=== PATIENT | female | born 1970 | race Caucasian/White ===

== ENCOUNTER → 2019-11-06 08:51 | Outpatient (BNVA) | payer BC, SELFPAY | PROVIDERS: Family Provider Nurse Practitioner; PCP Nurse Practitioner; Visit Provider Nurse Practitioner | DX: E88.81 Metabolic syndrome and other insulin resistance (principal); I10 Essential (primary) hypertension | CPT/HCPCS: 80048 ==

== ENCOUNTER → 2020-02-01 10:21 | Outpatient (BNVA) | payer BC, SELFPAY | PROVIDERS: Family Provider Nurse Practitioner; PCP Nurse Practitioner; Visit Provider Nurse Practitioner | DX: I10 Essential (primary) hypertension (principal); E88.81 Metabolic syndrome and other insulin resistance; R91.1 Solitary pulmonary nodule; R73.9 Hyperglycemia, unspecified | CPT/HCPCS: 80053; 80061; 83036; 84443 ==

== ENCOUNTER 2020-02-28 13:55 | Outpatient (CLI) | payer BC, SELFPAY ==
--- NOTE | 2020-02-28 14:15 | US_ITS ---
WS: [id number] THYROID ULTRASOUND HISTORY: fullness with swallowing COMPARISON: None available. Right lobe: 4.8 cm x 1.7 cm x 2.0 cm. Volume: 8.4 cm3. Normal size gland with heterogeneous echotexture. Hypoechoic areas within the central gland are very poorly visualized as discrete nodules. No increased vascularity. There are a few scattered calcificat ions. Largest nodule in the mid gland measures 1.4 x 0.8 x 1.0 cm. Left lobe: 5.0 cm x 1.5 cm x 1.4 cm. Volume: 5.3 cm3. Normal size gland with diffuse heterogeneity. There are multiple nodules. The largest nodule in the i nferior gland measures 1.5 x 0.8 x 2.1 cm. Isthmus: 0.5 cm. There are several small nodules along the isthmus. US/US thyroid [id number] IMPRESSION: 1. Multiple bilateral thyroid nodules. By ultrasound cannot classify these as benign. Recommend fine-needle aspiration by ultrasound. Fine-needle aspiration can be directed to the most concerning nodules bilaterally. Alternatively follo w-up with ENT recommended. 2. Diffuse heterogeneity throughout the gland.
== END 2020-02-28 13:56 | disposition home or self-care (01) ==
LOC: RAD 13:59
PROVIDERS: Family Provider Nurse Practitioner; PCP Nurse Practitioner; Visit Provider Nurse Practitioner
DX: F45.8 Other somatoform disorders (principal); E04.2 Nontoxic multinodular goiter
CPT/HCPCS: 76536

== ENCOUNTER 2020-04-21 13:01 | Outpatient (CLI) | payer BC, SELFPAY ==
--- NOTE | 2020-04-21 13:00 | CT_ITS ---
WS: [id number] CT CHEST TECHNIQUE: Noncontrast CT of the chest with coronal and sagittal reformatted images. CLINICAL INFORMATION: lung nodule and Mild ectasia of the ascending thoracic aorta COMPARISON: CT 8 5018 DLP: 950.[address] scans at [facility] use at least one of these dose optimization techniques: automat ed exposure control; mA and/or kV adjustment per patient size (includes targeted exams where dose is matched to clinical indication); or iterative reconstruction. FINDINGS: Again seen is mild ectasia of the ascending thoracic aorta measuring 3.5 CM. This is unchanged since the prior examination. Small esophageal hiatal hernia. Stable noncalcified 4 mm pulmonary nodule righ t lower lobe. This is unchanged since . No other suspicious pulmonary parenchymal abnormalitie s. No acute pulmonary infiltrates. No mediastinal or hilar lymphadenopathy. Adrenal glands are normal. No axillary lymphadenopathy. Hypertrophic changes thoracic spine. Fleischner Society guidelines for follow-up and management of incidental pulmonary nodule (Radiology 2005; 237:395-400): Nodule <= 4 mm: LOW-RISK patient (minimal or absent history of smoking and other known risk factors): No follow-up needed. HIGH-RISK patient (history of smoking or other known risk factors): Follow-up CT at 12 months; if unc hanged, no further follow-up. Nodule 5 - 6 mm: LOW-RISK patient (minimal or absent history of smoking and other known risk factors) : Follow-up CT at 12 months; if unchanged, no further follow-up. HIGH-RISK patient (history of smoking or other known risk factors): Initial follow-up CT at 6-12 murphy hs, then at 18-[address] CT/CT chest wo con [id number] IMPRESSION: 1. Stable 4 mm noncalcified nodule right lower lobe. 2. Mild chronic emphysematous changes. 3. No acute pulmonary infiltrates. 4. Stable slight ectasia of the ascending thoracic aorta measuring 3.5 cm. Thi s is unchanged. Normal caliber descending thoracic aorta. 5. No mediastinal or hilar lymphadenopathy. Fleischner Society Guidelines Chest CT
== END 2020-04-21 13:02 | disposition home or self-care (01) ==
LOC: RADWPI 13:07
PROVIDERS: Family Provider Nurse Practitioner; PCP Nurse Practitioner; Visit Provider Nurse Practitioner
DX: R91.1 Solitary pulmonary nodule (principal); I77.810 Thoracic aortic ectasia; J43.9 Emphysema, unspecified
CPT/HCPCS: 71250

== ENCOUNTER → 2020-04-24 09:07 | Outpatient (BNVA) | payer BC, SELFPAY | PROVIDERS: Family Provider Nurse Practitioner; PCP Nurse Practitioner; Visit Provider Nurse Practitioner | DX: I10 Essential (primary) hypertension (principal); E11.65 Type 2 diabetes mellitus with hyperglycemia; E88.81 Metabolic syndrome and other insulin resistance | CPT/HCPCS: 80053; 83036 ==

== ENCOUNTER → 2020-07-30 09:16 | Outpatient (BNVA) | payer BC, SELFPAY | PROVIDERS: Family Provider Nurse Practitioner; PCP Nurse Practitioner; Visit Provider Nurse Practitioner | DX: E11.65 Type 2 diabetes mellitus with hyperglycemia (principal); I10 Essential (primary) hypertension | CPT/HCPCS: 80053 ==

== ENCOUNTER → 2020-11-11 16:48 | Outpatient (BNVA) | payer BC, SELFPAY | PROVIDERS: Family Provider Nurse Practitioner; PCP Nurse Practitioner; Visit Provider Nurse Practitioner | DX: I10 Essential (primary) hypertension (principal); E11.65 Type 2 diabetes mellitus with hyperglycemia; R00.2 Palpitations; F41.9 Anxiety disorder, unspecified; M79.10 Myalgia, unspecified site | CPT/HCPCS: 80053; 80061; 82043; 83036 ==

== ENCOUNTER 2021-02-23 06:00 | Outpatient (CLI) | payer BC, SELFPAY | END 2021-02-23 06:01 | disposition home or self-care (01) | LOC: LAB 02-02 08:23 | PROVIDERS: PCP Nurse Practitioner; Visit Provider Nurse Practitioner | DX: E11.65 Type 2 diabetes mellitus with hyperglycemia (principal) | CPT/HCPCS: 80053; 83036 ==

== ENCOUNTER 2021-03-30 09:38 | Outpatient (CLI) | payer BC, SELFPAY ==
--- NOTE | 2021-03-30 09:30 | MM_ITS ---
WS: [id number] Gricelda Zavala BILATERAL SCREENING DIGITAL MAMMOGRAM WITH CAD HISTORY: Screening. COMPARISON: None available. Bilateral CC and MLO views submitted. Computer aided detection analyzed. Breast composition: There are scattered areas of fibroglandular density. No suspicious masses, microc alcifications or architectural distortion. Benign scattered calcifications in each breast. MM/[place] [id number] IMPRESSION: BI-RADS: 2-Benign FOLLOW UP: 1 Year Follow-up
--- NOTE | 2021-03-30 10:30 | CT_ITS ---
WS: [id number] Gricelda Salaz[address] CT CHEST WITHOUT INTRAVENOUS CONTRAST HISTORY: Follow-up pulmonary nodule. TECHNIQUE: Contiguous 5 mm axial imaging performed on the thorax. Coronal and sagittal reformats are submitted. All CT scans at [facility] use at least one of these dose optimization techniq ues: automated exposure control; mA and/or kV adjustment per patient size (includes targeted exams wh ere dose is matched to clinical indication); or iterative reconstruction. CONTRAST: None DLP: 1072.11 mGy-cm. COMPARISON: 04/21/2020 and 04/23/2019 Lungs and central airway: Mild pulmonary hyperinflation. Stable 4 mm nodule in the periphery of the R IGHT lower lobe. Nodule has been stable since 04/23/2019. No new nodules. No pneumonia. Pleura: Normal. No pleural effusion. Heart and pericardium: Normal size heart with no pericardial effusion. Mediastinum and tyshawn: No mediastinum or hilar adenopathy. Vessels: Mildly enlarged pulmonary artery, 3.1 cm. There is mild atherosclerosis within the thoracic aorta but no aneurysm. Chest wall and lower neck: No soft tissue masses. Upper abdomen: Mild hepatic steatosis. No adrenal mass. Osseous structures: Mild thoracic spondylosis. No destructive bone lesions. CT/CT chest wo con [id number] IMPRESSION: 1. Long-term stability 4 mm nodule in the RIGHT lower lobe. No additional imag ing follow-up necessary at this time. 2. Mild pulmonary hypertension. 3. No adenopathy. 4. Chronic emphysema.
== END 2021-03-30 09:39 | disposition home or self-care (01) ==
LOC: RADSHAW 09:41
PROVIDERS: Family Provider Nurse Practitioner; PCP Nurse Practitioner; Visit Provider Nurse Practitioner
DX: Z12.31 Encounter for screening mammogram for malignant neoplasm of breast (principal); R91.1 Solitary pulmonary nodule; I27.20 Pulmonary hypertension, unspecified; J43.9 Emphysema, unspecified
CPT/HCPCS: 71250; 77067

== ENCOUNTER → 2021-05-28 16:11 | Outpatient (BNVA) | payer BC, SELFPAY | PROVIDERS: Family Provider Nurse Practitioner; PCP Nurse Practitioner; Visit Provider Nurse Practitioner | DX: E11.65 Type 2 diabetes mellitus with hyperglycemia (principal); I10 Essential (primary) hypertension; F41.9 Anxiety disorder, unspecified; M79.10 Myalgia, unspecified site; R00.2 Palpitations | CPT/HCPCS: 80053; 83036 ==

== ENCOUNTER → 2021-09-08 11:08 | Outpatient (BNVA) | payer BC, SELFPAY | PROVIDERS: Family Provider Nurse Practitioner; PCP Nurse Practitioner; Visit Provider Nurse Practitioner | DX: E11.65 Type 2 diabetes mellitus with hyperglycemia (principal) | CPT/HCPCS: 80053; 83036 ==

== ENCOUNTER 2021-11-16 23:30 | Emergency (ER) | payer OTHER, SELFPAY ==
--- NOTE | 2021-11-16 23:37 | ED_ITS ---
HPI - Ear Problem General: Chief complaint: General Medical Stated complaint: Bug in Rt ear Time Seen by Provider: 11/16/21 23:37 History of Present Illness: 51-year-old female reports that she was lying in bed reading when she felt something go into her ear. Patient has tried irrigat ing out at home but continues to feel it in her ear. Patient appears in no acute distress. Patient denies any other concerns. Associated symptoms: Reports ear or mastoid pain (Foreign body right ear) Review of Systems General: Reports: 10 or more systems reviewed and unremarkable except in HPI and below ENMT: Reports: ear or mastoid pain (Foreign body right ear) PFSH ED PFSH: Medical History Aortic root dilatation 3.5cm BMI 40.0-44.9, adult Controlled diabetes mellitus with hyperglycemia Essential hypertension History of mammography, screening Hx of solitary pulmonary nodule Surgical History Hx of eye surgery right eye age 7 Family History Father Hypertension Mother Diabetes Social History Second hand smoke exposure: No Smoking risk assessment/counseling performed?: No Alcohol intake: current Alcohol intake frequency: holidays/special occasions only Desire information about alcohol rehabilitation?: No Counseling given: No Desire information about substance/drug rehabilitation?: No Counseling given: No Adopted: No Caregiver/support person: No Lives independently: Yes Household members: spouse Housing: House Marital status: Number of children: 1 service: No Current occupational status: employed Current occupation: [employer] Pets and animals: Yes History of recent travel: No Current gender identity: Female Female Reproductive History: Date of last menstrual period: 08/27/21 Physical Exam Const: COMMON NORMALS: alert HENMT: EXTERNAL AUDITORY CANAL: Abnormal EAC present EAC laterality: right Details: excessive cerumen and foreign body (Distal ear canal 6 o'clock position) Lymph: LYMPHATIC: no lymphadenopathy noted Resp: COMMON NORMALS: normal respiratory effort Cardio: COMMON NORMALS: regular rate and regular rhythm RATE: regular rate RHYTHM: regular rhythm Extremity: COMMON NORMALS: normal to inspection Neuro: SENSORIUM/ORIENTATION: Yes alert Psych: COMMON NORMALS: cooperative Procedures FB Removal Ear Location: ear canal (R) Foreign Body Suspected: insect TM intact pre-procedure: yes If Insect Suspected: ear canal instilled with other (Carbamide peroxide) Foreign Body Removed: no Foreign Body Removal Technique: instrumentation Tympanic Membrane Intact Post Procedure: Yes Patient Tolerated Procedure: no complications Course Vital Signs: Vital signs: Vital Signs Temperature 97.8 F 11/16/21 23:39 Pulse Rate 90 11/16/21 23:39 Respiratory Rate 16 11/16/21 23:39 Blood Pressure 149/106 11/16/21 23:39 Pulse Oximetry 99 11/16/21 23:39 MDM - Ear Medical Decision Making 51-year-old female comes in today with a insect to the right ear canal. On exam there is cerumen to the 6 o'clock position in the deep ear canal. Suspected insect is noted. Tympanic membrane is intact. Differential diagnosis includes perforation of the tympanic membrane, foreign body, cerumen impaction. After irrigation and carbamide peroxide instillation. Ear was then reirrigated but foreign body could not be dislodged, and I was unable to reach it with forceps. I will continue patient on Debrox otic solution and recommend patient follow-up with research test engine operator or primary care. Patient was agreeable to this plan. Discharge Plan Discharge Patient Disposition: Home Clinical Impression: Foreign body in ear Qualifiers: Encounter type: initial encounter Laterality: right Qualified Code(s): T16.1XXA - Foreign body in right ear, initial encounter Condition: Stable Prescriptions: No Action Mucinex 1,200 mg tablet extended release 12hr 1,200 mg PO Q12H Qty: 60 0RF Victoza 3-Ford 0.6 mg/0.1 mL (18 mg/3 mL) pen injector 2.4 mg SUBCUT .COMPLEX Qty: 18 2RF Rx Instructions: 2.4 mg SUBCUT ; irbesartan 150 mg tablet 150 mg PO BID Qty: 60 2RF furosemide 20 mg tablet 20 mg PO BID PRN (Reason: edema) Qty: 60 2RF metformin 500 mg tablet extended release 24 hr 1,000 mg PO DAILY Qty: 180 0RF metoprolol succinate 25 mg tablet extended release 24 hr 25 mg PO QDAY Qty: 30 2RF tizanidine 2 mg tablet 2 mg PO BID PRN (Reason: muscle spasticity) Qty: 60 2RF venlafaxine [Effexor XR] 75 mg capsule,extended release 24hr 75 mg PO QAM Qty: 30 2RF magnesium oxide 250 mg magnesium tablet 250 mg PO DAILY 0RF Curcumin 95 % powder See Rx Instructions miscellaneous DAILY 0RF Rx Instructions: 500mg tab miscellaneous daily; (DME) pen needle, diabetic 33 gauge x 5/32 needle See Rx Instructions .ROUTE .MEDSUPPLY Qty: 100 5RF Rx Instructions: 1 timesday Discharge Orders: Discharge ED (Routine); Ordered 11/17/21 Ordered By: Neri Scales Referrals: Arpan Swartz, PUBLIC POLICY ANALYST-C [Primary Care Provider] - Discharge Diet: Usual diet Discharge Activity: Increase activity as tolerated Activity Restrictions/Additional Instructions: Use carbamide peroxide otic solution 5 drops to the right ear twice a day for 5 days. Follow-up with primary care or research test engine operator for complete removal of the insect. Monitor for fever greater than 100.4 or new concerns. Use acetaminophen or ibuprofen for pain. Case management will contact you with assistance for follow-up appointment. Coding Level of Care Code ED Aging Room Operator for Royce Pate
[2021-11-16 23:39] VITALS: BP 149/106; PULSE 90; RESP 16; TEMP 36.6; O2SAT 99; BMI 30.4
[2021-11-17] MEDS: carbamide peroxide Otic 15 mL Btl 5 DROP EAR-RIGHT (00:07)
--- NOTE | 2021-11-17 09:15 | DCPLANNER ---
Addendum entered by Marcy Srivastava 11/18/21 14:34: international tax manager was contacted by the ENT clinic - patient has already followed up with Dr. Jc. Original Note: international tax manager had message to schedule a follow up appointment for patient with ENT. international tax manager emailed patients information to Connie Mckeon and Hannah at [facility] General Surgery / ENT clinic. Patients information will be printed and reviewed. Clinic will call patient with appointment information.
== END 2021-11-17 00:57 | disposition home or self-care (01) ==
PROVIDERS: Emergency Provider Nurse Practitioner Family; PCP Nurse Practitioner
DX: T16.1XXA Foreign body in right ear, initial encounter (principal); E11.9 Type 2 diabetes mellitus without complications; I10 Essential (primary) hypertension; X58.XXXA Exposure to other specified factors, initial encounter
CPT/HCPCS: 99282

== ENCOUNTER → 2021-12-10 16:49 | Outpatient (BNVA) | payer OTHER, SELFPAY | PROVIDERS: PCP Nurse Practitioner; Visit Provider Nurse Practitioner | DX: I10 Essential (primary) hypertension (principal); E11.65 Type 2 diabetes mellitus with hyperglycemia; R00.2 Palpitations; M79.10 Myalgia, unspecified site; F41.9 Anxiety disorder, unspecified; Z68.41 Body mass index [BMI] 40.0-44.9, adult; E55.9 Vitamin D deficiency, unspecified | CPT/HCPCS: 80053; 82306; 83036 ==

== ENCOUNTER → 2022-05-03 13:32 | Outpatient (BNVA) | payer BC, SELFPAY | PROVIDERS: PCP Nurse Practitioner; Visit Provider Nurse Practitioner | DX: I10 Essential (primary) hypertension (principal); M79.10 Myalgia, unspecified site; F41.9 Anxiety disorder, unspecified; E11.65 Type 2 diabetes mellitus with hyperglycemia; R00.2 Palpitations; Z68.41 Body mass index [BMI] 40.0-44.9, adult | CPT/HCPCS: 80053; 80061; 83036 ==

== ENCOUNTER → 2022-09-01 09:40 | Outpatient (BNVA) | payer BC, SELFPAY | PROVIDERS: PCP Nurse Practitioner; Visit Provider Nurse Practitioner | DX: E11.65 Type 2 diabetes mellitus with hyperglycemia (principal); R10.2 Pelvic and perineal pain; N92.6 Irregular menstruation, unspecified; I10 Essential (primary) hypertension; R00.2 Palpitations; F41.9 Anxiety disorder, unspecified | CPT/HCPCS: 80053; 80061; 83036; 84443; 85025; 85651; 86140 ==

== ENCOUNTER 2022-11-04 07:45 | Outpatient (CLI) | payer BC, SELFPAY ==
--- NOTE | 2022-11-04 07:45 | US_ITS ---
WS: [id number] TRANSVAGINAL PELVIC ULTRASOUND HISTORY: R10.2 - Pelvic and perineal pain COMPARISON: None available. Uterus: 6.7 cm x 5.1 cm x 3.3 cm. Normal size anteverted uterus. Mild heterogeneity but no discrete m ass within the myometrium. Hypoechoic well-circumscribed mass within the cervix. The largest measures 9 x 8 x 10 mm. No increase d vascularity. Suspect this may be a complex nabothian cyst but should be further evaluated. Endometrium: 0.8 cm. Negative. Right ovary: 1.8 cm x 2.2 cm x 1.7 cm. Normal size and vascularity, no cystic or solid masses. Left ovary: 2.6 cm x 2.1 cm x 1.8 cm. Normal size and vascularity, no cystic or solid masses. No free fluid. US/US transvaginal [id number] IMPRESSION: 1. Unremarkable endometrium. Remains within normal limits for premenopausal pa tient. 2. Heterogeneity in the cervix along with the complex mass with a maximum diam eter of 10 mm. May be a complex nabothian cyst. Recommend follow-up by POLICE AIDE.
== END 2022-11-04 07:46 | disposition home or self-care (01) ==
PROVIDERS: PCP Nurse Practitioner; Visit Provider Nurse Practitioner
DX: R10.2 Pelvic and perineal pain (principal); N92.6 Irregular menstruation, unspecified
CPT/HCPCS: 76830

== ENCOUNTER → 2022-11-24 09:45 | Outpatient (BNVA) | payer BC, SELFPAY | PROVIDERS: PCP Nurse Practitioner; Visit Provider Nurse Practitioner | DX: F41.9 Anxiety disorder, unspecified (principal); E11.65 Type 2 diabetes mellitus with hyperglycemia; R00.2 Palpitations; I10 Essential (primary) hypertension; M79.10 Myalgia, unspecified site; R70.0 Elevated erythrocyte sedimentation rate | CPT/HCPCS: 80053; 82043; 83036; 86038; 86431 ==

== ENCOUNTER → 2023-01-14 18:23 | Outpatient (BNVA) | payer BC, SELFPAY | PROVIDERS: PCP Nurse Practitioner; Referring Provider Nurse Practitioner; Visit Provider Obstetrics & Gynecology | DX: N91.5 Oligomenorrhea, unspecified (principal); I10 Essential (primary) hypertension | CPT/HCPCS: 83001; 84146; 84443; 84702 ==

== ENCOUNTER → 2023-02-16 09:23 | Outpatient (BNVA) | payer BC, SELFPAY | PROVIDERS: PCP Nurse Practitioner; Visit Provider Nurse Practitioner | DX: E11.65 Type 2 diabetes mellitus with hyperglycemia (principal); I10 Essential (primary) hypertension; R00.2 Palpitations; M79.10 Myalgia, unspecified site; F41.9 Anxiety disorder, unspecified | CPT/HCPCS: 80053; 80061; 83036 ==

== ENCOUNTER → 2023-02-22 14:17 | Outpatient (BNVA) | payer BC, SELFPAY | PROVIDERS: PCP Nurse Practitioner; Referring Provider Nurse Practitioner; Visit Provider Internal Medicine | DX: R76.8 Other specified abnormal immunological findings in serum (principal); M79.10 Myalgia, unspecified site | CPT/HCPCS: 36415; 72040; 72100; 72202; 73120; 80053; 81001; 82550; 82784; 83516; 84100; 85025; 85651; 86140; 86160; 86162; 86200; 86235; 86255; 86376; 86480; 86704; 86803; 87340 ==

== ENCOUNTER → 2023-03-30 08:01 | Outpatient (BNVA) | payer BC, SELFPAY | PROVIDERS: PCP Nurse Practitioner; Visit Provider Obstetrics & Gynecology | DX: N93.9 Abnormal uterine and vaginal bleeding, unspecified (principal); D25.9 Leiomyoma of uterus, unspecified | CPT/HCPCS: 76830 ==

== ENCOUNTER → 2023-05-11 09:37 | Outpatient (BNVA) | payer BC, SELFPAY | PROVIDERS: PCP Nurse Practitioner; Visit Provider Nurse Practitioner | DX: I10 Essential (primary) hypertension (principal); E11.65 Type 2 diabetes mellitus with hyperglycemia; R00.2 Palpitations; M79.10 Myalgia, unspecified site; F41.9 Anxiety disorder, unspecified | CPT/HCPCS: 80053; 80061 ==

== ENCOUNTER 2023-11-16 14:52 | Outpatient (CLI) | payer BC, SELFPAY ==
--- NOTE | 2023-11-16 16:00 | CT_ITS ---
WS: [id number] CT CHEST, ABDOMEN AND PELVIS WITH CONTRAST HISTORY: I77.810 - Thoracic aortic ectasia TECHNIQUE: Contiguous 5 mm axial imaging performed through the chest, abdomen and pelvis without IV c ontrast, oral contrast has been provided. Coronal and sagittal reformats chest. Coronal and sagittal reformats through the abdomen and pelvis. All CT scans at [facility] use at least one of thes e dose optimization techniques: automated exposure control; mA and/or kV adjustment per patient size (includes targeted exams where dose is matched to clinical indication); or iterative reconstruction. CONTRAST: None DLP: 1376.93 mGy.cm COMPARISON: 03/30/[address]: No new mass or nodule or pneumonia. Stable subpleural 4 mm nodule in the posterior RIGHT lo wer lobe. Heart size is normal. No pericardial or pleural effusions. Mildly ectatic thoracic aorta. A scending aorta is 3.9 cm. Normal size pulmonary artery. Mild atherosclerosis aorta. Negative chest wa ll. Small hiatal hernia. Abdomen CT: Diffuse hepatic steatosis. Mild hepatomegaly. Normal size spleen. Negative gallbladder an d pancreas. No adrenal mass. Normal kidneys. No GI tract obstruction. No colitis. Normal appendix. Minimal sigmoid diverticulosis without acute di verticulitis. No ascites or adenopathy. Pelvic CT: Normally distended bladder. Normal uterus and adnexa. No adenopathy or ascites. Small lipo ma lateral to the RIGHT hip. IMPRESSION: 1. Minimal aneurysmal dilatation of the ascending aorta 3.9 cm. Compared to 3.5 cm on 04/21/2020. Mild atherosclerosis. 2. No pulmonary mass or pneumonia. 3. No mediastinal or hilar adenopathy. 4. Hepatic steatosis. 5. No adenopathy or ascites in the abdomen.
== END 2023-11-16 14:53 | disposition home or self-care (01) ==
LOC: RAD 14:53
PROVIDERS: PCP Nurse Practitioner; Visit Provider Nurse Practitioner
DX: I77.810 Thoracic aortic ectasia (principal); R91.1 Solitary pulmonary nodule
CPT/HCPCS: 71250; 74176

== ENCOUNTER 2023-11-29 11:58 | Outpatient (CLI) | payer BC, SELFPAY ==
--- NOTE | 2023-11-29 12:00 | MM_ITS ---
WS: [id number] BILATERAL 3D TOMOSYNTHESIS DIGITAL SCREENING MAMMOGRAPHY WITH CAD CLINICAL INFORMATION: Z12.31 - Encounter for screening mammogram for malignant ... HISTORY: Screening mammogram. No current complaints. COMPARISON: 2020 TECHNIQUE: Bilateral CC and MLO views. FINDINGS: Scattered fibroglandular densities bilaterally. No suspicious focal mass, asymmetry, calcifications, or architectural distortion. No evidence of malignancy. Incidental punctate benign calcifications. IMPRESSION: MM/[place] [id number] BI-RADS: 2-Benign FOLLOW UP: 1 Year Follow-up Recommend return to annual screening mammography.
== END 2023-11-29 11:59 | disposition home or self-care (01) ==
LOC: MOBLMAM 12:01
PROVIDERS: PCP Nurse Practitioner; Visit Provider Nurse Practitioner
DX: Z12.31 Encounter for screening mammogram for malignant neoplasm of breast (principal)
CPT/HCPCS: 77063; 77067